=== PATIENT | female | born 1995 | race Hispanic/Latino ===

== ENCOUNTER 2019-05-25 21:58 | Inpatient (IN) ==
[2019-05-25] MEDS ORDERED: PEPCID PO ONE (22:50)
[2019-05-25] MEDS ORDERED: STADOL IV PRN (22:50)
[2019-05-25] MEDS ORDERED: PEPCID PO PRN (22:50)
[2019-05-25] MEDS ORDERED: ZOFRAN IV PRN (22:50)
[2019-05-25] MEDS ORDERED: REGLAN PO ONE (22:50)
[2019-05-25] MEDS ORDERED: AMPICILLIN 2 GM/NS 2 GM/100 ML IVPB IV ONE (22:50)
[2019-05-25] MEDS ORDERED: KEFZOL 1 GM/D5W 1 GM/50 ML IVPB IV PRN (22:50)
[2019-05-25] MEDS ORDERED: TYLENOL PO PRN (22:50)
[2019-05-25] MEDS ORDERED: PEPCID IV PRN (22:50)
[2019-05-25] MEDS ORDERED: SODIUM CHLORIDE 0.9% INJ SCH (23:00)
[2019-05-25] MEDS ORDERED: LR 1,000 ML IV SCH (23:00)
[2019-05-25] MEDS ORDERED: PITOCIN 30 UNITS/NS 30 UNIT/500 ML IV.SOLN IV SCH (23:00)
--- NOTE | 2019-05-25 23:07 | OB/GYN PROGRESS NOTE ---
Progress Note OB - . Patient Problems: Current Active Problems Problem Status Onset Intrauterine Acute OB Progress Note: 23 yo. HF at 38 weeks with c/o ctx, no vb ,ROM pos FM. Primary Physician Scott. Not able to see chart. Pt does not speak Macanese. PMH - None PSH - None Pobh - 1 - no comp PGYN - None Allergies - none MEds - none SH - neg FH - NC VSS AF Gen - Pt in no apparent distress A&O x 3 ABD soft NT Extreme - no CCE FHT - cat 1 Ctx - reg cvx4-, BB A/p IUP at TERM Expactant management GBS pos will start AMP
[2019-05-26 00:20] LABS: URINE SOURCE VOIDED
[2019-05-26 00:25] LABS: BASO# 0.01 X1000 (0.0-0.2); BASO% 0.1 % (0.0-0.8); EOS# 0.04 X1000 (0.0-0.7); EOS% 0.4 % (0.0-10.0); HEMATOCRIT 36.9 % (37.0-47.0); HEMOGLOBIN 12.9 g/dL (12.0-16.0); IMM GRAN# 0.03 X1000 (0.0-0.04); IMM GRAN% 0.3 % (0.0-0.5); LYMPH# 1.91 X1000 (1.2-3.4); LYMPH% 17.8 % (20.5-51.1); MCH 29.1 PG (27-31); MCV 83.1 FL (81-99); MONO# 0.81 X1000 (0.11-0.59); MONO% 7.6 % (1.7-9.3); MPV 10.9 FL (7.4-10.4); NEUT# 7.92 X1000 (1.4-6.5); NEUT% 73.8 % (42.2-75.2); PLT 261 X1000 (130-400); RBC 4.44 XMIL (4.2-5.4); RDW 13.2 % (11.5-14.5); WBC 10.72 X1000 (4.8-10.8)
[2019-05-26] MEDS ORDERED: MINERAL OIL PRN (00:25)
[2019-05-26] MEDS ORDERED: XYLOCAINE-MPF 1% INJ PRN ×2 (00:25→01:28)
[2019-05-26 00:37] LABS: BILIRUBIN URINE NEGATIVE (NEGATIVE); BLOOD URINE 4+ (NEGATIVE); CLARITY CLEAR (CLEAR); COLOR YELLOW; GLUCOSE URINE NEGATIVE (NEGATIVE); KETONE URINE NEGATIVE (NEGATIVE); LEUKOCYTES URINE 2+ (NEGATIVE); NITRITE URINE NEGATIVE (NEGATIVE); PH URINE 6.5; PROTEIN URINE TRACE mg/dL (NEGATIVE); UROBILINOGEN URINE NORMAL
[2019-05-26 00:44] LABS: UR AMPHETAMINES QUAL NONE DETECTED (NONE DETECT); UR BARBITUATES QUAL NONE DETECTED (NONE DETECT); UR BENZODIAZEPIN QUAL NONE DETECTED (NONE DETECT); UR CANNABINOIDS QUAL NONE DETECTED (NONE DETECT); UR COCAINE QUAL NONE DETECTED (NONE DETECT); UR METHADONE QUAL NONE DETECTED (NONE DETECT); UR METHAMPHETAMINE QUAL NONE DETECTED (NONE DETECT); UR OPIATES QUAL NONE DETECTED (NONE DETECT); UR OXYCODONE QUAL NONE DETECTED (NONE DETECT); UR PCP QUAL NONE DETECTED (NONE DETECT); UR PROPOXYPHENE QUAL NONE DETECTED (NONE DETECT); UR TCA QUAL NONE DETECTED (NONE DETECT)
[2019-05-26] MEDS ORDERED: AMBIEN PO PRN (01:28)
[2019-05-26] MEDS ORDERED: MINERAL OIL PO PRN (01:28)
[2019-05-26] MEDS ORDERED: BENADRYL IV PRN (01:28)
[2019-05-26] MEDS ORDERED: BENADRYL PO PRN (01:28)
[2019-05-26] MEDS ORDERED: M-M-R II VACCINE SUBQ ONE (01:28)
[2019-05-26] MEDS ORDERED: CYTOTEC PO PRN (01:28)
[2019-05-26] MEDS ORDERED: BOOSTRIX VACCINE IM ONE (01:28)
[2019-05-26] MEDS ORDERED: HYDROXYZINE IM PRN (01:28)
[2019-05-26] MEDS ORDERED: ATARAX PO PRN (01:28)
[2019-05-26] MEDS ORDERED: PERI MEDS (DERMOPLAST/NUPERCAINAL/TUCKS) MISC PRN (01:28)
[2019-05-26] MEDS ORDERED: PITOCIN IM PRN (01:28)
[2019-05-26] MEDS ORDERED: PITOCIN 30 UNITS/NS 30 UNIT/500 ML IV.SOLN IV SCH (01:30)
[2019-05-26] MEDS: MOTRIN PO PRN ×3 (02:14→22:34)
[2019-05-26] MEDS ORDERED: PITOCIN 20 UNITS/NS 20 UNITS/1,000 ML IV.SOLN ONE (02:18)
[2019-05-26] MEDS ORDERED: AMPICILLIN 1 GM/NS 1 GM/50 ML IVPB IV SCH (03:10)
[2019-05-26 05:47] LABS: BASO# 0.01 X1000 (0.0-0.2); BASO% 0.1 % (0.0-0.8); EOS# 0.02 X1000 (0.0-0.7); EOS% 0.1 % (0.0-10.0); HEMATOCRIT 33.6 % (37.0-47.0); HEMOGLOBIN 11.3 g/dL (12.0-16.0); IMM GRAN# 0.03 X1000 (0.0-0.04); IMM GRAN% 0.2 % (0.0-0.5); LYMPH# 1.24 X1000 (1.2-3.4); LYMPH% 8.4 % (20.5-51.1); MCH 28.3 PG (27-31); MCHC 33.6 g/dL (33-37); MONO# 0.91 X1000 (0.11-0.59); MONO% 6.2 % (1.7-9.3); MPV 10.8 FL (7.4-10.4); NEUT# 12.57 X1000 (1.4-6.5); PLT 249 X1000 (130-400); RDW 13.1 % (11.5-14.5); WBC 14.78 X1000 (4.8-10.8)
--- NOTE | 2019-05-26 06:30 | OPERATIVE NOTE ---
PROCEDURE DATE : 05/26/2019 This is a 23-year-old female, G2, P2 who had a spontaneous vaginal delivery with no lacerations, clear fluid. GBS positive. Vertex male, weight 7 pounds 3 ounces, Apgars 9 and 9. Placenta delivered without complications.
[2019-05-26] MEDS: PERCOCET-5 PO PRN ×2 (16:24→22:34)
[2019-05-26] MEDS: PERICOLACE PO SCH (22:34)
[2019-05-27 06:58] LABS: BASO# 0.01 X1000 (0.0-0.2); BASO% 0.1 % (0.0-0.8); EOS% 1.2 % (0.0-10.0); HEMATOCRIT 33.1 % (37.0-47.0); HEMOGLOBIN 10.9 g/dL (12.0-16.0); IMM GRAN# 0.04 X1000 (0.0-0.04); IMM GRAN% 0.5 % (0.0-0.5); LYMPH# 2.74 X1000 (1.2-3.4); LYMPH% 33.2 % (20.5-51.1); MCH 28.3 PG (27-31); MCHC 32.9 g/dL (33-37); MONO# 0.51 X1000 (0.11-0.59); MONO% 6.2 % (1.7-9.3); MPV 10.8 FL (7.4-10.4); NEUT# 4.86 X1000 (1.4-6.5); NEUT% 58.8 % (42.2-75.2); PLT 230 X1000 (130-400); RBC 3.85 XMIL (4.2-5.4); RDW 13.5 % (11.5-14.5); WBC 8.26 X1000 (4.8-10.8)
[2019-05-27] MEDS: MOTRIN PO PRN ×2 (07:11→16:25)
[2019-05-27] MEDS: PERCOCET-5 PO PRN ×3 (07:12→20:56)
--- NOTE | 2019-05-27 07:54 | OB/GYN PROGRESS NOTE ---
Progress Note OB - . Patient Problems: Current Active Problems Problem Status Onset Yakut speaking patient Acute Normal vaginal delivery Acute Intrauterine Acute OB Progress Note: Vital Signs - 24 hr 05/26/19 11:53 05/26/19 16:10 05/26/19 22:30 Temperature 96.6 F L 96.3 F L 97.8 F Pulse Rate 68 61 60 Respiratory Rate 18 18 16 Blood Pressure 108/66 95/57 95/57 O2 Sat by Pulse Oximetry 100 97 98 05/27/19 07:15 Temperature 96.7 F L Pulse Rate 57 L Respiratory Rate 16 Blood Pressure 102/56 O2 Sat by Pulse Oximetry 98 Laboratory Results - last 24 hr 05/27/19 06:15 WBC 8.26 RBC 3.85 L Hgb 10.9 L Hct 33.1 L MCV 86.0 MCH 28.3 MCHC 32.9 L RDW Std Deviation 13.5 Plt Count 230 MPV 10.8 H Immature Gran % (Auto) 0.5 Neut % (Auto) 58.8 Lymph % (Auto) 33.2 Overton % (Auto) 6.2 Eos % (Auto) 1.2 Baso % (Auto) 0.1 Immature Gran # (Auto) 0.04 Neut # (Auto) 4.86 Lymph # (Auto) 2.74 Overton # (Auto) 0.51 Eos # (Auto) 0.10 Baso # (Auto) 0.01 HPI: Pt seen and examined. Currently w/o complaints. Denies pain. Ambulating and urinating without difficulty. Tolerating regular diet. Denies nausea/vomiting. Reports + bottle feeding and decreased lochia VS: please see above GEN: NAD CV: RRR, +S1S2 RESP: CTA b/l ABD: soft, NTTP, FF below umbilicus EXT: neg CT LABS: please see above ASSESSMENT: 23yo PPD#1 s/p PLAN: -con't routine PP care -plan for d/c tomorrow
[2019-05-27] MEDS: PERICOLACE PO SCH (20:56)
[2019-05-28] MEDS: MOTRIN PO PRN ×2 (00:37→08:28)
--- NOTE | 2019-05-28 07:46 | OB/GYN PROGRESS NOTE ---
Progress Note OB - . Patient Problems: Current Active Problems Problem Status Onset Normal vaginal delivery Acute Intrauterine Acute OB Progress Note: Vital Signs - 24 hr 05/27/19 16:20 05/27/19 23:40 Temperature 97.6 F 97.2 F L Pulse Rate 63 62 Respiratory Rate 16 16 Blood Pressure 102/65 99/62 O2 Sat by Pulse Oximetry 98 97 S: Patient without complaints. Denied fever, chills, N/V, SOB, or chest pain. Ambulating. Voiding without difficulty. Has lower abdominal cramping, but pain controlled. Formula feeding by choice. Desires control, but unsure what type, and not immediately. O: Gen: NAD, patient seems reserved CV: RRR Pulm: CTAB; no rhonchi, wheezing, or rales Abd: soft, NTTP, non-distended; fundus firm, and below umbilicus Ext: no LE TTP A&P: 23yo PPD#2 s/p at 38w1d 1. PPD#2 -No concerns -Patient reports of having no care, but has records from Dr Chavez' clinic. Patient seems reserved. SW consultation requested -Discharge instructions given to patient -(Corrections Officer line used)
[2019-05-28 08:21] VITALS: BP 95/53
[2019-05-28] MEDS: PERCOCET-5 PO PRN (08:28)
--- NOTE | 2019-05-28 11:59 | DISCHARGE SUMMARY ---
ADMISSION DATE: 05/25/2019 DISCHARGE DATE: 05/28/2019 DISCHARGE DIAGNOSIS: A 23-year-old G2, P2-0-0-2, status post spontaneous vaginal delivery at approximately 38 weeks gestational age. HOSPITAL COURSE: This is a 23-year-old now G2, P2 that presented at 38 weeks gestational age in labor. The patient was started on ampicillin for GBS positive prophylaxis. Labor course was unremarkable. The patient had a positive spontaneous vaginal delivery of a male on 05/26/2019, weight 7 pounds 3 ounces. course was complete without complications. Social Work consultation was requested to assess for patient's safety and resources especially given that patient is exclusively Wallisian- speaking. The patient was formula feeding by choice and desired some sort of contraception, but unsure of which type. DISCHARGE DIET: Regular. DISCHARGE DISPOSITION: Stable. LABORATORY: Predelivery hemoglobin and hematocrit 12.9/36.9. Postdelivery hemoglobin and hematocrit 10.9/33.1, platelet count 230,000. UDS unremarkable. RPR nonreactive. DISCHARGE INSTRUCTIONS: Patient was instructed to follow up with Dr. Chavez in approximately 4 weeks. Discharge precautions were given. DISCHARGE MEDICATIONS: 1. Ibuprofen 800 mg q.8 hours p.r.n. pain. 2. Natalie-Colace p.r.n. constipation. 3. vitamins 1 tab daily. [facility]
== END 2019-05-28 11:15 | disposition home or self-care (01) | DRG 807 ==
LOC: P.OPLD 21:58 → P.LD 21:59
PROVIDERS: ADMIT Obstetrics & Gynecology; ATTEND Obstetrics & Gynecology